=== PATIENT | male | born 1970 | race Two or more races ===

== ENCOUNTER 2023-10-21 10:00 | Emergency (ER) | payer OTHER ==
[~2023-10-21] VITALS: Ht 172.7 cm; Wt 84.1 kg
[2023-10-21 10:36] VITALS: TEMP 98.6
[2023-10-21 11:24] LABS: TROPONIN I-HIGH SENSITIVITY 9 ng/L (<76)
[2023-10-21] MEDS: LIDOCAINE 1% 10 ML VIAL SQ ONE (12:02)
[2023-10-21] MEDS: IBUPROFEN 600 MG TABLET PO ONE (12:49)
[2023-10-21] MEDS: CEPHALEXIN MONOHYDRATE 500 MG CAPSULE PO ONE (12:49)
[2023-10-21 13:19] VITALS: BP 159/94; PULSE 65; RESP 18
== END 2023-10-21 13:20 ==
LOC: EMS 10:00
DX: L02.414 Cutaneous abscess of left upper limb (principal); E11.9 Type 2 diabetes mellitus without complications; E78.00 Pure hypercholesterolemia, unspecified; I10 Essential (primary) hypertension; I48.91 Unspecified atrial fibrillation
CPT/HCPCS: 99284; 10060; 84484; 36415; 93005; J3490